=== PATIENT | male | born 1935 | race Caucasian/White ===

== ENCOUNTER → 2016-09-09 | Outpatient (CLI) | payer MEDICARE, OTHER ==
[~2016-09-09] MED LIST: ALB/IPRATROPIUM/1 E2 INH; ALBUTEROL17 GM INH; ALDACTONE PO; ALDACTONE25 MG PO; AMLODIPINE BESY10 MG PO; AMLODIPINE BESYL5 MG PO; ASPIRIN81 M2 PO; ASPIRIN81 MG PO; ATORVASTATIN CA80 MG PO; AUGMENTIN875 M1 PO; BMP (LAB); BREO ELLIPTA 11 EACH INH; CARVEDILOL25 M1 PO; CARVEDILOL25 MG PO; CATAPRES-TTS-20.2 MG PO; CLONIDINE HCL0.1 MG PO; CLONIDINE PO; COMBIVENT RESPIM4 GM INH; COREG PO; CYANOCOBALAM1000 MCG PO; ESCITALOPRAM OX10 MG PO; FAMOTIDINE20 M1 PO; FUROSEMIDE40 MG PO; GABAPENTIN300 M2 PO; GABAPENTIN300 MG PO; HUMULIN 70100 UNIT/1 SUBQ; HUMULIN N100 U/ML SUBQ; HUMULIN N100 UNIT/1; HUMULIN N100 UNIT/2 SUBQ; HUMULIN N100 UNITS/ SUBQ; HYDRALAZINE HC100 MG PO; HYDRALAZINE HCL25 MG PO; HYDRALAZINE HCL50 MG PO; IMDUR-ER60 M1 PO; IMDUR-ER60 M2 PO; IMDUR-ER60 MG PO; IPRAT-ALBUT 0.5-3 ML NEB; ISORDIL10 MG PO; ISOSORBIDE MONO60 M1 PO; KCL PO; KLOR-CON PO; LASIX PO; LASIX20 MG PO; LEVAQUIN PO; LEXAPRO20 MG PO; LIPITOR40 MG PO; LIPITOR80 MG PO; LISINOPRIL PO; LISINOPRIL20 MG PO; METFORMIN HCL500 M1 PO; NEURONTIN300 MG PO; PATIENT'S PHARMACY; PEPCID AC20 M2 PO; PREDNISONE PO; PREDNISONE10 MG PO; SERTRALINE HCL100 MG PO; SPIRIVA18 MCG INH; ZESTRIL40 MG PO
--- NOTE | ~2016-09-09 | CR63 ---
[facility] A Service of [facility] RADIOLOGY TEXT RESULTS PATIENT: TAMRA POWELL LOCATION: [facility] : 36 UNIT #: [id number] AGE: [address]: Rafi Vidales MD SEX: M ORDER DR: [id number] [facility] [address] [facility]. [place], [place] [address] [id number] O MR#: [id number] Acc #: [id number] NAME: TAMRA POWELL : 1935 SEX: M STUDY DATE/TIME: 09/09/2016 9:49 UNIT: [facility] ROOM: STUDY DESCRIPTION: CR Chest 2 View Attending Physician: Simeon Vidales M.D. Referring Physician: Simeon Vidales M.D. Ordering Physician: Simeon Vidales M.D. Primary Care Physician: Caryl Duarte M.D. MEDICAL IMAGING REPORT This report is preliminary unless electronic signature is present EXAM PA and lateral chest 09/09/2016. COMPARISON 03/02/2016. HISTORY COPD. Chronic respiratory failure, diabetes, shortness of breath and cough for 1 week. FINDINGS PA and lateral views of the chest are obtained showing postop changes of prior CABG. Heart size is enlarged. Lungs show extensive pulmonary fibrosis. There is blunting of the costophrenic angles posteriorly and there may be a tiny amount of fluid within the fissures. CONCLUSION Severe pulmonary fibrosis. Postop changes of bypass surgery with cardiomegaly. Small amount of pleural fluid which may reflect some mild superimposed heart failure. Dictated by... Santana Sepulveda M.D. THIS IS AN ELECTRONICALLY VERIFIED REPORT Santana Sepulveda M.D. at 09/10/2016 4:45 PM Iveth TD: 09/09/2016 11:59 JOB #: [id number] MEDICAL IMAGING REPORT COPY
[2016-09-09 12:23] LABS: BUN/CREATININE RATIO 20.76; CALCIUM SERUM 8.8 mg/dL (8.4-10.2); CREATININE SERUM 1.3 mg/dL (0.6-1.4); GLOM FILT RATE Estimated 56.5 mL/min (>60); POTASSIUM 3.9 mmol/L (3.5-5.1)
[2016-09-09 12:36] LABS: ARTERIAL BLD GAS O2 SATURATION 92.9 % (90.0-100.0); ARTERIAL BLOOD GAS CARBOXY HB 1.6 %sat (0.0-9.0); ARTERIAL BLOOD GAS HCO3 40.1 mmol/L; ARTERIAL BLOOD GAS MET HB 0.6 %sat (0.0-2.0); ARTERIAL BLOOD GAS pH 7.367 (7.350-7.450)
[2016-09-09 12:40] LABS: ARTERIAL BLOOD GAS ART SITE RIGHT BRACHIAL; ARTERIAL BLOOD GAS DELIVERY NASAL CANNULA; ARTERIAL BLOOD GAS PO2 74.8 mmHg (80.0-100); ARTERIAL DRAW? YES
== END | disposition home or self-care (01) ==
LOC: CRAD 09:28
PROVIDERS: Internal Medicine Pulmonary Disease
DX: J44.9 Chronic obstructive pulmonary disease, unspecified (principal); J96.11 Chronic respiratory failure with hypoxia; E11.9 Type 2 diabetes mellitus without complications; J84.10 Pulmonary fibrosis, unspecified; I51.7 Cardiomegaly; Z95.1 Presence of aortocoronary bypass graft; Z99.81 Dependence on supplemental oxygen
CPT/HCPCS: 36415; 36600; 71020; 80048; 82803

== ENCOUNTER → 2016-09-21 | Outpatient (CLI) | payer MEDICARE ==
--- NOTE | ~2016-09-21 | CT57 ---
[facility] A Service of [facility] RADIOLOGY TEXT RESULTS PATIENT: CAMILO POWELL LOCATION: [facility] : 37 UNIT #: [id number] AGE: [address]: Rafi Vidales MD SEX: M ORDER DR: [id number] [facility] [address] [facility] [place], [place] [address] [id number] O MR#: [id number] Acc #: [id number] NAME: CAMILO POWELL : 1935 SEX: M STUDY DATE/TIME: 09/21/2016 13:17 UNIT: [facility] ROOM: STUDY DESCRIPTION: CT Chest Wo Cont Attending Physician: Simeon Vidales M.D. Referring Physician: Simeon Vidales M.D. Ordering Physician: Simeon Vidales M.D. Primary Care Physician: Caryl Duarte M.D. MEDICAL IMAGING REPORT This report is preliminary unless electronic signature is present EXAM CT of the chest without contrast. DATE OF EXAM 09/21/2016 INDICATIONS 81-year-old male with shortness of breath for 2 years, COPD, respiratory failure. TECHNIQUE CT scan of the chest was performed without contrast. Coronal and sagittal reformatted images were obtained. NOTE: This CT exam was performed with one or more of the following radiation dose reduction techniques: automatic exposure control, adjustment of mA and/or kV according to patient size, and iterative reconstruction. COMPARISON Compared with 03/18/2015. FINDINGS Stable, small right pleural effusion. There is a trace left pleural effusion which is smaller than the prior study. There are stable mildly prominent mediastinal lymph nodes. These are probably reactive. Prior sternotomy and CABG. Images through the lungs demonstrate mild emphysema. There is a new 6 - 7 mm pulmonary nodule within the superior segment of the left lower lobe. Calcified granuloma in left upper lobe. Passive atelectasis in both lower lobes. Limited imaging of the upper abdomen is unremarkable. The bone windows are unremarkable. IMPRESSION 1. There is a new 6-7 mm nodule in the superior segment of the left lower lobe. Using the updated 2017 Fleischner Society criteria, STS. [facility] A Service of [facility] RADIOLOGY TEXT RESULTS PATIENT: CAMILO POWELL LOCATION: [facility] : 36 UNIT #: [id number] AGE: [address]: Rafi Vidales MD SEX: M ORDER DR: follow up chest CT in 6 months is recommended. 2. The remainder of the study is stable. Dictated by... Bipin Randolph M.D. THIS IS AN ELECTRONICALLY VERIFIED REPORT Bipin Randolph M.D. at 09/23/2016 7:32 AM GONZALES/nasrin TD: 09/21/2016 21:33 JOB #: [id number] MEDICAL IMAGING REPORT COPY
== END | disposition home or self-care (01) ==
LOC: CCAT 12:51
DX: J44.9 Chronic obstructive pulmonary disease, unspecified (principal); J96.11 Chronic respiratory failure with hypoxia; J96.12 Chronic respiratory failure with hypercapnia; R91.1 Solitary pulmonary nodule
CPT/HCPCS: 71250

== ENCOUNTER → 2016-10-20 | Outpatient (CLI) | payer MEDICARE, OTHER ==
--- NOTE | ~2016-10-20 | US84 ---
[id number] [facility] [address] [place], [place] [address] [id number] O MR#: [id number] Acc #: [id number] NAME: CAMILO POWELL : 1935 SEX: M STUDY DATE/TIME: 10/20/2016 14:33 UNIT: [facility] ROOM: STUDY DESCRIPTION: US LE Veins Complete Arias Stdy Attending Physician: Simeon Vidales M.D. Referring Physician: Simeon Vidales M.D. Ordering Physician: Simeon Vidales M.D. Primary Care Physician: Caryl Duarte M.D. MEDICAL IMAGING REPORT This report is preliminary unless electronic signature is present EXAM Bilateral lower extremity venous duplex, 10/20/2016. HISTORY Bilateral lower extremity edema for 4 days, right greater than left. FINDINGS Decker-scale images of the lower extremities were obtained as well as Doppler waveform spectral analysis and color-flow Doppler imaging. There is normal blood flow and compressibility in the bilateral common femoral veins, deep femoral veins, superficial femoral veins and popliteal veins. Normal blood flow and compressibility is seen in the calf veins bilaterally. In the right popliteal fossa, there is a 1 cm x 1 cm x 3.9 cm fluid collection characteristic of a Owusu cyst. In the left popliteal fossa, there is a 4.4 cm x 1.3 cm x 7 mm fluid collection, also characteristic of a Owusu cyst. IMPRESSION 1. No evidence of deep vein thrombosis within the lower extremities bilaterally. 2. Fluid collections in each popliteal fossa characteristic of bilateral Owusu cysts. Dictated by... Solis Green M.D. THIS IS AN ELECTRONICALLY VERIFIED REPORT Solis Green M.D. at 10/21/2016 8:09 AM ZORA/ange TD: 10/20/2016 15:53 JOB #: [id number] MEDICAL IMAGING REPORT Page 1 of 1 COPY
== END | disposition home or self-care (01) ==
LOC: CNIV 14:06
DX: M79.89 Other specified soft tissue disorders (principal); J44.9 Chronic obstructive pulmonary disease, unspecified; G47.33 Obstructive sleep apnea (adult) (pediatric)
CPT/HCPCS: 93970

== ENCOUNTER 2016-11-01 16:00 | Inpatient (IN) | payer MEDICARE, OTHER ==
--- NOTE | ~2016-11-01 | CO ---
Unit #: [id number] #: [id number] Patient: CAMILO POWELL [id number] [address] [place], [place] [address] [id number] I MR#: [id number] NAME: CAMILO POWELL ROOM: 558 Age: 81 Sex: M Admission Date: 11/01/2016 : 1935 Attending Physician: Carlos Harris M.D. Primary Care Physician: Caryl Duarte M.D. Consultation Date: 11/02/2016 CONSULTATION REPORT REASON FOR CONSULTATION Acute on chronic diastolic congestive heart failure. HISTORY OF PRESENT ILLNESS This is an 81-year-old white male, who has known history of having 4-vessel CABG back in 2002. His last cardiac cath revealed that his grafts were patent. His EF was greater than 55% with jnol-mj-kbfdzqnj mitral regurgitation, tricuspid regurgitation on last echo in 2014. He has COPD, uses continuous home oxygen; obstructive sleep apnea; hypertension; diabetic; chronic kidney disease. He is very hard of hearing. The patient was just in this facility in 02/2016 with similar symptoms. The patient was sent from the primary care physician's office after having reported a 10-pound weight gain and increasing lower extremity edema and some abdominal swelling. His oxygen saturation in the office was 85% that was even on the 3 L. Family declined EMS transport, but brought the patient to the hospital. On interview and exam with the patient and the , she does report that he had increased shortness of breath with minimal exertion along with swelling in the right leg. He denies any chest pain; pain in the neck, bilateral jaws, shoulders, arms, or elbow. Denies any palpitations. No dizziness, presyncope, or syncope. The states that she feels the patient is drinking more fluids and taking more salt than he should. Also, he has been outside doing some work on small engine such as wall murals in the garage and she thinks he has been overdoing it. In the emergency room, the patient's blood pressure was high at 199/62 with heart rate of 69, respirations 18, temperature 98.1, O2 saturation was 93% that was on 4 L. Chest x-ray did not show anything acute. BNP was 704. EKG showed normal sinus rhythm. Nonspecific findings. Nothing acute. Initial cardiac enzymes were negative. The patient also was given a dose of IV Lasix, admitted with acute on chronic diastolic heart failure and some exacerbation of COPD. Cardiology consult to assist with evaluation and management. The patient is active with Dr. Heck and just saw him in 07/2016, and was doing fine. PAST MEDICAL HISTORY 1. In 2002, he had a 4-vessel coronary artery bypass graft. Last cardiac cath was in 2014. Four grafts were found to be patent. Findings;. a. Left main 80% stenosis near the distal end. b. LAD long 80% lesion in the proximal fragment. c. Ramus intermedius 30% with hazy lesion. Unit #: [id number] #: [id number] Patient: CAMILO POWELL. Left circumflex 100% proximal. e. Mid RCA 30% stenosis with grafts to these lesions. 2. In 2014; 2D echo, LVEF of greater than 55%. Oukp-bg-mvubocwk mitral regurgitation, pdis-sx-upanoiph tricuspid regurgitation. 3. Chronic diastolic congestive heart failure. 4. COPD, continues oxygen at 3 L. 5. Obstructive sleep apnea. 6. Hypertension. 7. Diabetes mellitus type 2. 8. Hyperlipidemia. 9. Chronic kidney disease. 10. Gastroesophageal reflux disease. 11. B12 deficiency. 12. Hard of hearing. 13. Peripheral vascular disease. 14. On 10/20/2016, bilateral lower extremity venous Doppler studies were negative for DVT. 15. Reformed smoker. PAST SURGICAL HISTORY 1. Four-vessel coronary artery bypass graft in 2002. 2. Vein stripping. HOME MEDICATIONS Breo Ellipta 100/25 one inhalation daily; Humulin N 35 units subcu in the morning; aspirin 81 mg p.o. daily; Lipitor 40 mg p.o. bedtime; lisinopril 20 mg p.o. daily; Aldactone 12.5 mg p.o. daily; albuterol/ ipratropium one inhalation every 12 hours p.r.n.; Lasix 40 mg p.o. b.i.d.; Humulin N 10 units subcu in the evening; amlodipine 5 mg p.o. daily; carvedilol 25 mg p.o. b.i.d.; Combivent one inhalation q.i.d. p.r.n.; escitalopram oxalate 10 mg p.o. in the morning; Humulin 70/30, 30 units subcu daily; Neurontin 600 mg p.o. b.i.d.; Imdur ER 60 mg p.o. daily. ALLERGIES No known drug allergies. SOCIAL HISTORY The patient lives at home with his . He wears continuous home oxygen at 3 L. 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 No alcohol or illicit drug abuse. He quit smoking 20 years ago. FAMILY HISTORY Significant for coronary artery disease. REVIEW OF SYSTEMS See details in HPI. PHYSICAL EXAMINATION GENERAL: Mr. Powell is an 81-year-old white male, in no acute respiratory distress. He is awake, alert, very hard of hearing. Answers questions appropriately to his . VITAL SIGNS: Blood pressure is 169/80, heart rate 66, respirations 16, temperature 98.1, O2 saturations 99% on 3 L. NECK: Trachea midline. No thyromegaly or lymphadenopathy. Normal carotid upstrokes. No jugular venous distention. HEART: S1, S2. Regular rate and rhythm. No clicks, murmurs, or rubs. Unit #: [id number] #: [id number] Patient: CAMILO POWELL LUNGS: A very diminished with a few faint scattered wheezes. ABDOMEN: Obese, soft, nontender. EXTREMITIES: Pedal pulses are palpable. Trace pedal edema. DIAGNOSTIC STUDIES LABORATORY RESULTS: Glucose is 167, BUN 22, creatinine 1.1, eGFR is 63.1. Sodium 141, potassium 3.6, chloride 98, CO2 of 37, calcium is 8.8, magnesium is 1.9, total protein 6.5, albumin 3.3, bilirubin total 1.2, AST is 19, ALT is 24, alkaline phosphatase is 64, BNP 704. Initial cardiac enzymes; CK-MB is 1.7, and troponin less than 0.05. CK-MB is less than 1.0, troponin less than 0.05. INR is 1.1. WBCs 6.1, hemoglobin 11.9, hematocrit 36.9, platelets are 195. Urinalysis reveals 3+ leukocyte esterase, 100 glucose, and 1.0 urobilinogen. IMAGING STUDIES: Chest x-ray shows cardiomegaly, chronic passive congestion with fibrotic changes, and chronic right-sided pleural effusion. This was repeated compared to study done a month ago. No evidence of DVT. He does have a Owusu cyst in the left popliteal fossa. CARDIOVASCULAR STUDIES: EKG shows normal sinus rhythm with ventricular rate of 65 beats per minute, nonspecific ST-T wave abnormalities. Slightly prolonged QT. IMPRESSION 1. Acute on chronic diastolic congestive heart failure. 2. Acute on chronic exacerbation of chronic obstructive pulmonary disease. 3. Poorly controlled hypertension. 4. History of coronary artery disease. Previous coronary artery bypass grafting in 2002. Grafts were found patent on catheterization in 2014. 5. Left ventricular ejection fraction of greater than 55% on last echo 2014 with qtoo-ta-bbswpzht mitral regurgitation, tricuspid regurgitation. 6. Hypertension. 7. Hyperlipidemia. 8. Diabetes mellitus type 2. 9. Chronic kidney disease. 10. Gastroesophageal reflux disease. 11. B12 deficiency. 12. Peripheral vascular disease. 13. Hard of hearing. PLAN 1. Continue to monitor cardiac enzymes and EKG. We will adjust the patient's blood pressure medication. We will change Lasix to 60 mg p.o. b.i.d., also that will be changed from IV Lasix here. 2. We will add hydralazine 50 mg p.o. b.i.d. and Isordil 20 mg p.o. b.i.d. for better blood pressure management. 3. Strict intake and output and daily weight. 1800 mL 24-hour fluid restriction. 4. Obtain a 2D echo to evaluate left ventricular function and valves, couple of years since he has had echo. 5. Also continue the patient on his home medications of carvedilol 25 mg p.o. b.i.d., Norvasc 5 mg p.o. daily, lisinopril 20 mg p.o. daily, and a statin 40 mg p.o. daily, and also on aspirin and spironolactone 12.5 mg daily in addition to adding hydralazine and Isordil. 6. After Dr. Stanford reviewed the patient's medication and made recommendations along with examination and discussion with the patient, it is felt like it would be permissible to discharge the patient later today. 7. Strict congestive heart failure education provided to the patient, Unit #: [id number] #: [id number] Patient: CAMILO POWELL reiterated the importance of fluid restriction. 8. On exam, there is no signs or symptoms of unstable angina. Cardiac enzymes are negative. EKG does not show anything acute. 9. The patient and the states that he has an appointment with Dr. Heck towards the end of 12/2016. I encouraged to keep that appointment when discharged. Thank you very much for allowing us to assist in the care. Dictated by... Brittni Villegas/donny TD: 11/03/2016 05:48 JOB #: [id number] CONSULTATION REPORT Page 1 of 1 X Suellen García APRN X CONSULTATION REPORT
--- NOTE | ~2016-11-01 | EKG ---
PATIENT: CAMILO POWELL UNIT #: [id number] Ventricular Rate: 65 BPM Atrial Rate: 65 BPM P-R Interval: 150 ms QRS Duration: 88 ms Q-T Interval: 448 ms QTC Calculation(Bezet): 465 ms P Hollister: 63 degrees Calculated R Hollister: 21 degrees Calculated T Hollister: 169 degrees Diagnosis Line: Normal sinus rhythm Diagnosis Line: Nonspecific T wave abnormality Diagnosis Line: Prolonged QT Diagnosis Line: Abnormal ECG Diagnosis Line: When compared with ECG of 02-MAR-2016 14:01, Diagnosis Line: Premature ventricular complexes are no longer Diagnosis Line: Present Diagnosis Line: Confirmed by CARIN CAMACHO MD ([id number]) on 11/01/2016 Diagnosis Line: 10:34:33 PM INTERPRETING MD: JANICE MO
--- NOTE | ~2016-11-01 | CR72 ---
[facility] A Service of [facility] RADIOLOGY TEXT RESULTS PATIENT: CAMILO POWELL LOCATION: [place] [address] : 37 UNIT #: [id number] AGE: [address]: Carlos Harris MD SEX: M ORDER DR: [id number] [facility] [address] [place], [place] [address] [id number] E MR#: [id number] Acc #: [id number] NAME: CAMILO POWELL : 1935 SEX: M STUDY DATE/TIME: 11/01/2016 16:18 UNIT: [facility] ROOM: STUDY DESCRIPTION: CR Chest Single View Portable Attending Physician: Toyin Garland M.D. Ordering Physician: Toyin Garland M.D. Primary Care Physician: Caryl Duarte M.D. MEDICAL IMAGING REPORT This report is preliminary unless electronic signature is present EXAM Portable chest 11/01 COMPARISON 09/09/2016 HISTORY SUPPLIED Shortness of breath, possible heart failure. FINDINGS AP portable view is obtained. Cardiac size is enlarged. Lungs show evidence of chronic pulmonary parenchymal scarring and least mild passive congestion. There is chronic appearing pleural thickening. Postop changes of bypass surgery are present. CONCLUSION Cardiomegaly. Chronic passive congestion with fibrotic changes and chronic right-sided pleural thickening. No acute process suspected. Dictated by... Santana Sepulveda M.D. THIS IS AN ELECTRONICALLY VERIFIED REPORT Santana Sepulveda M.D. at 11/03/2016 7:19 AM ANASTASIA/sonny TD: 11/01/2016 20:48 JOB #: [id number] MEDICAL IMAGING REPORT Page 1 of 1 COPY
--- NOTE | ~2016-11-01 | HP ---
Unit #: [id number] #: [id number] Patient: CAMILO POWELL [id number] [place] [address] [facility]. [place], [place] [address] [id number] E MR#: [id number] NAME: CAMILO POWELL ROOM: Age: 81 Sex: M Admission Date: 11/01/2016 : 1935 Attending Physician: Toyin Garland M.D. Primary Care Physician: Caryl Duarte M.D. HISTORY AND PHYSICAL CHIEF COMPLAINT Sent from PCP for possible heart failure. HISTORY OF PRESENT ILLNESS The patient is a 25-year-old male with a past medical history of CHF, chronic respiratory failure, COPD, chronic kidney disease, hypertension, hyperlipidemia, coronary artery disease, GERD, diabetes, B12 deficiency, and obstructive sleep apnea, who presented to the emergency department for evaluation of the above. The patient is very hard of hearing and so much of the history was taken from the patient's who is at the bedside but also from the patient. The patient has not been feeling well for the past three to four days. He has had increasing shortness of breath and occasional cough. He has had dyspnea on exertion when walking across the room. He has not had chest pain or fever. He has two-pillow orthopnea that is not a new problem. He denies paroxysmal nocturnal dyspnea. He has had right lower extremity swelling that is not a new problem. He had bilateral lower extremity venous Doppler on October 20, 2016, that showed no DVT. He denies any vomiting or diarrhea and no urinary symptoms. He has been taking his medications as prescribed. The patient's states that he may have been sneaking some salty food. She is unsure if he has had any change in his weight. In the emergency department, initial pulse and blood pressure were 69 and 199/62, respectively, and oxygen saturation was 93% on four liters. Chest x-ray showed no acute findings. Laboratory is notable for BNP of 704. He is being admitted to [facility] for evaluation and further treatment. PAST MEDICAL HISTORY 1. Admission to [facility] March 02, 2016, for acute on chronic respiratory failure and CHF exacerbation. 2. Congestive heart failure followed by Dr. Heck. The patient had an echocardiogram December 21, 2014, that showed an ejection fraction greater than 55% with mild to moderate mitral regurgitation and mild to moderate tricuspid regurgitation. 3. History of PVCs. 4. Hypertension. 5. Hyperlipidemia. 6. Coronary artery disease, status post coronary artery bypass grafting. 7. Chronic obstructive pulmonary disease followed by Dr. Vidales. 8. Chronic respiratory failure, on three liters of oxygen per nasal cannula. Unit #: [id number] #: [id number] Patient: CAMILO POWELL 9. Obstructive sleep apnea, on CPAP. 10. Diabetes. 11. Gastroesophageal reflux disease. 12. B12 deficiency. PAST SURGICAL HISTORY 1. Coronary artery bypass grafting. 2. Cardiac catheterization. SOCIAL HISTORY The patient lives with his . He quit smoking. He typically walks without assistance. His code status is a Full Code. FAMILY HISTORY Notable for coronary artery disease. ALLERGIES No known allergies. HOME MEDICATIONS 1. Breo Ellipta inhaled daily. 2. Humulin N 35 units in the morning and 10 units at night. 3. Aspirin 81 mg daily. 4. Lipitor 40 mg daily. 5. Lisinopril 20 mg daily. 6. Aldactone 12.5 mg daily. 7. Ipratropium and albuterol q.12 hours. 8. Lasix 40 mg twice daily. 9. Amlodipine 5 mg daily. 10. Coreg 25 mg twice daily. 11. Combivent 4 times daily p.r.n. 12. Escitalopram 10 mg daily. 13. Humulin 70/30 at 30 units daily. 14. Neurontin 600 mg twice daily. 15. Imdur 60 mg daily. REVIEW OF SYSTEMS A complete review of systems is negative except as indicated in the History of Present Illness. The patient's blood sugars are typically in the 100s. PHYSICAL EXAMINATION VITAL SIGNS: Temperature is 98.1, pulse 69, respirations 18, blood pressure 199/62, and oxygen saturation 93% on 4 liters. GENERAL: Patient is a male who is awake, alert, and in no acute distress. HEENT: Head is atraumatic. Mucous membranes are moist. NECK: Supple. Trachea is midline. CARDIOVASCULAR: Regular rate and rhythm. LUNGS: Decreased breath sounds bilaterally. Breathing is not labored. ABDOMEN: Soft and nontender with bowel sounds present in all four quadrants. EXTREMITIES: There is 1+ pitting edema of the right lower extremity and trace edema of the left. NEUROLOGIC: Patient is awake and alert. He is very hard of hearing. He follows commands. PSYCHIATRIC: Mood and affect are normal. Patient is cooperative. SKIN: Skin of examined areas is warm and dry. Unit #: [id number] #: [id number] Patient: CAMILO POWELL DIAGNOSTIC STUDIES LABORATORY: Complete blood count notable for hemoglobin and hematocrit of 12.4 and 38.5, respectively. INR is 1.1. Troponin is less than 0.05. Comprehensive metabolic panel notable for a potassium of 3.4, chloride 98, bicarb 36, glucose 217, and BUN and creatinine 23 and 1.2, respectively. BNP is 704. IMAGING: Chest x-ray shows no acute abnormality. CARDIOLOGY: EKG shows normal sinus rhythm with a rate of 65 beats per minute. ASSESSMENT The patient is an 81-year-old male with: 1. Congestive heart failure exacerbation. 2. Chronic respiratory failure on three liters of oxygen per nasal cannula. 3. Chronic obstructive pulmonary disease. 4. Chronic kidney disease, appears to be stage 3, with a baseline creatinine around 1.3. 5. Hypokalemia. 6. Hypertension. 7. Hyperlipidemia. 8. Coronary artery disease, status post coronary artery bypass grafting. 9. Gastroesophageal reflux disease. 10. Diabetes. 11. B12 deficiency. 12. Obstructive sleep apnea, on CPAP. PLAN 1. Admit to intermediate level. 2. Two gram sodium, 1800 mL fluid-restricted, heart-healthy, consistent carbohydrate diet. 3. Strict I/Os. 4. Daily weights. 5. Lasix 40 mg IV q.12 hours with first dose now. 6. Serial cardiac enzymes. 7. A 2D echo if not done within the past year. 8. Consult Dr. Ordaz regarding CHF exacerbation. 9. Supplemental oxygen. 10. Replace potassium. 11. Check magnesium. 12. Hemoglobin A1c. 13. Low-dose sliding scale insulin with Accu-Cheks. 14. CPAP at home settings. 15. Urinalysis with culture and sensitivity. 16. Bilateral lower extremity venous Doppler. 17. Repeat labs in the morning. 18. Regarding code status, the patient is a Full Code. 19. Additional workup and consultants based on above. 1. Dictated by Sonja Moe M.D. AW/phuong Unit #: [id number] #: [id number] Patient: CAMILO POWELL TD: 11/01/2016 20:53 JOB #: [id number] HISTORY AND PHYSICAL Page 1 of 1 X Sonja Moe MD X HISTORY AND PHYSICAL
--- NOTE | ~2016-11-01 | US84 ---
[id number] [facility]. [facility] [address] [place], [place] [address] [id number] I MR#: [id number] Acc #: [id number] NAME: CAMILO POWELL : 1935 SEX: M STUDY DATE/TIME: 11/02/2016 9:46 UNIT: C5B ROOM: 558 STUDY DESCRIPTION: US LE Veins Complete Arias Stdy Attending Physician: Carlos Harris M.D. Ordering Physician: Toyin Garland M.D. Primary Care Physician: Caryl Duarte M.D. MEDICAL IMAGING REPORT This report is preliminary unless electronic signature is present EXAM Bilateral lower extremity venous duplex, 11/02/2016. HISTORY Bilateral lower extremity edema for 1 month. Evaluate for deep vein thrombosis. FINDINGS Decker-scale images of the lower extremities were obtained as well as Doppler waveform spectral analysis and color flow Doppler imaging. There is normal blood flow and compressibility in the bilateral common femoral veins, deep femoral veins, superficial femoral veins and popliteal veins. Normal blood flow and compressibility is seen in the calf veins bilaterally. There is a 2.7 cm x 4.9 cm x 9 mm complicated fluid collection in the left popliteal fossa characteristic of a Owusu cyst. IMPRESSION 1. No evidence of deep vein thrombosis within the lower extremities bilaterally. 2. 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 Dictated by... Solis Green M.D. THIS IS AN ELECTRONICALLY VERIFIED REPORT Solis Green M.D. at 11/03/2016 8:04 AM ZORA/ange TD: 11/02/2016 11:08 JOB #: [id number] MEDICAL IMAGING REPORT Page 1 of 1 COPY
--- NOTE | ~2016-11-01 | DS ---
Unit #: [id number] #: [id number] Patient: CAMILO OPWELL [id number] [address] [place], [place] [address] [id number] I MR#: [id number] NAME: CAMILO POWELL ROOM: 55 Age: 81 Sex: M Admission Date: 11/01/2016 : 1935 Discharge Date: 11/02/2016 Attending Physician: Carlos Harris M.D. Primary Care Physician: Caryl Duarte M.D. DISCHARGE SUMMARY ADMITTING DIAGNOSIS Acute on chronic systolic congestive heart failure. ADMITTING DISCHARGE DIAGNOSES 1. Acute on chronic systolic congestive heart failure. 2. Chronic respiratory failure. 3. Chronic obstructive pulmonary disease. 4. Chronic kidney disease. 5. Hypertension. 6. Hyperlipidemia. 7. Coronary artery disease. 8. Gastroesophageal reflux disease. 9. Diabetes mellitus type 2. 10. Vitamin B12 deficiency. 11. Obstructive sleep apnea. CONSULTANTS Dr. Kisha Stanford. HISTORY OF PRESENT ILLNESS The patient is an 81-year-old man with multiple medical problems. Was admitted yesterday because of shortness of breath and worsening edema in the lower extremities. In the hospital course he was started on diuretics, and his edema has improved. He was seen by cardiology. They titrated his medications. He started on hydralazine 50 mg p.o. b.i.d., Isordil 20 mg p.o. b.i.d., and his Lasix dose was also increased from 40 mg to 60 mg p.o. b.i.d. An echocardiogram was done. The report is pending at this point. Cardiology said it is okay to discharge the patient. I spoke with the patient and his . The patient says he is feeling better, and he wants to go home. He says that he has a cat at his home, and he needs to take care of the cat, and he is eager to go home. I am requesting him to follow up with cardiology as an outpatient. He follows with Dr. Heck. Requested him to follow with Dr. Heck as an outpatient. He is doing clinically better. PHYSICAL EXAMINATION ON THE DAY OF DISCHARGE VITAL SIGNS: Temperature 98.1, pulse rate 66, respirations 16, blood pressure 169/82. GENERAL: The patient is alert and oriented x3, lying in bed, no acute distress. HEENT: Normocephalic, atraumatic. No icterus. PERRLA. Extraocular muscles intact. NECK: Supple. No JVD. HEART: S1, S2. Regular rate and rhythm. Unit #: [id number] #: [id number] Patient: CAMILO POWELL CHEST: Bibasilar crackles. ABDOMEN: Soft, nontender. EXTREMITIES: No edema. Normal pulses. DISCHARGE MEDICATIONS 1. Albuterol 3 mL Mini-Nebulization q.4 p.r.n. shortness of breath. 2. Combivent Respimat inhaler 1 inhalation q.i.d. p.r.n. shortness of breath. 3. Neurontin 600 mg b.i.d. 4. Lexapro 10 mg in the morning. 5. Coreg 25 mg p.o. b.i.d. 6. Norvasc 5 mg daily. 7. Breo Ellipta 100/25 mcg inhalation 1 puff daily. 8. Lasix 60 mg p.o. b.i.d. 9. Lipitor 40 mg at bedtime. 10. Lisinopril 20 mg daily. 11. Humulin 70/30 - 30 units subcu daily. 12. Humulin U100 - 35 units subcu in the morning and 10 units in the evening. 13. Aspirin 81 mg daily. 14. Spironolactone 12.5 mg daily. 15. Imdur ER 60 mg daily. 16. Isordil 20 mg b.i.d. 17. Hydralazine 50 mg b.i.d. FOLLOWUP He is instructed to follow with his primary care in 1-2 weeks. NOTE: Total time spent in his care - 35 minutes. Dictated by... Arin France/edin TD: 11/02/2016 12:23 JOB #: [id number] DISCHARGE SUMMARY Page 1 of 1 X X DISCHARGE SUMMARY
[~2016-11-01 16:00] MED LIST changes: -ALBUTEROL17 GM INH; -AMLODIPINE BESYL5 MG PO; -BMP (LAB); -CARVEDILOL25 M1 PO; -COMBIVENT RESPIM4 GM INH; -ESCITALOPRAM OX10 MG PO; -GABAPENTIN300 MG PO; -HUMULIN 70100 UNIT/1 SUBQ; -HUMULIN N100 UNIT/1; -HUMULIN N100 UNIT/2 SUBQ; -IPRAT-ALBUT 0.5-3 ML NEB; -ISORDIL10 MG PO; -ISOSORBIDE MONO60 M1 PO; -LEXAPRO20 MG PO; -NEURONTIN300 MG PO; -PATIENT'S PHARMACY
[2016-11-01 16:12] LABS: BASOPHIL% 0.4 % (0-2.5); EOSINOPHIL# 0.2 X10e3 (0-0.7); EOSINOPHIL% 2.4 % (0.0-7.0); HEMATOCRIT 38.5 % (38.0-50.0); HEMOGLOBIN 12.4 gm/dL (13.0-16.0); LYMPHOCYTE# 1.2 X10e3 (1.0-3.5); LYMPHOCYTE% 18.2 % (17.0-45.0); MEAN CELL VOLUME 87.8 FL (83-96); MEAN CORPUSCULAR HEMOGLOBIN 28.2 PG (28-34); MEAN CORPUSCULAR HGB CONC 32.1 g/dL (30-36); MEAN PLATELET VOLUME 7.4 FL (6.5-11.5); MONOCYTE# 0.4 X10e3 (0-1.0); MONOCYTE% 6.6 % (3.0-12.0); NEUTROPHIL# 4.8 X10e3 (1.5-7.1); NEUTROPHIL% 72.4 % (40-75); PLATELET COUNT 206 X10e3 (140-420); RED BLOOD COUNT 4.39 X10e (3.90-5.60); WHITE BLOOD COUNT 6.6 X10e3 (4.0-10.5)
[2016-11-01 16:13] LABS: DIFF IND NO
[2016-11-01 16:27] LABS: INR 1.1; PROTHROMBIN TIME (PATIENT) 11.6 SECONDS (9.6-11.5)
[2016-11-01 16:38] LABS: ALBUMIN SERUM 3.6 g/dL (3.5-5.0); BILIRUBIN, DIRECT 0.2 mg/dL (0.0-0.2); BILIRUBIN,INDIRECT 1.2 mg/dL (0.0-0.9); BILIRUBIN,TOTAL 1.4 mg/dL (0.2-2.0); BUN/CREATININE RATIO 19.16; CALCIUM SERUM 9.2 mg/dL (8.4-10.2); CREATININE SERUM 1.2 mg/dL (0.6-1.4); GLOM FILT RATE Estimated 56.8 mL/min (>60); POTASSIUM 3.4 mmol/L (3.5-5.1); PROTEIN TOTAL SERUM 6.9 g/dL (6.0-8.3)
[2016-11-01 16:41] LABS: POC - CKMB 1.7 ng/mL (0.0-7.9); POC - TROPONIN <0.05 ng/mL (<=0.05)
[2016-11-01 18:03] LABS: POC - CKMB <1.0 ng/mL (0.0-7.9); POC - TROPONIN <0.05 ng/mL (<=0.05)
[2016-11-01] MEDS ORDERED: HUMULIN N100 UNIT/2 SUBQ (18:55)
[2016-11-01] MEDS ORDERED: AMLODIPINE BESYL5 MG PO (18:57)
[2016-11-01] MEDS ORDERED: CARVEDILOL25 MG PO (18:57)
[2016-11-01] MEDS ORDERED: COMBIVENT RESPIM4 GM INH (19:00)
[2016-11-01] MEDS ORDERED: ESCITALOPRAM OX10 MG PO (19:01)
[2016-11-01] MEDS ORDERED: HUMULIN 70100 UNIT/1 SUBQ (19:02)
[2016-11-01] MEDS ORDERED: NEURONTIN300 MG PO (19:03)
[2016-11-01] MEDS ORDERED: IMDUR-ER60 M1 PO (19:04)
[2016-11-01] MEDS ORDERED: LEXAPRO20 MG PO (19:05)
[2016-11-01 20:58] LABS: URINE SOURCE CLEAN CATCH
[2016-11-01 21:05] LABS: URINE APPEARANCE CLEAR; URINE BILIRUBIN NEG (NEG); URINE BLOOD NEG (NEG); URINE COLOR YELLOW; URINE GLUCOSE 100 MG/DL (NEG); URINE KETONE NEG (NEG); URINE LEUKOCYTE ESTERASE NEG (NEG); URINE NITRATE NEG (NEG); URINE PROTEIN 3+ (NEG); URINE SPECIFIC GRAVITY 1.015 (1.003-1.035)
[2016-11-01 21:08] LABS: URINE BACTERIA AUWI NEG (NEGATIVE); URINE SQUAMOUS EPITHELIAL CELL NONE SEEN /[HPF]; UWBCS1 AUWI 0-2 (0-5)
[2016-11-01 23:47] LABS: CK TOTAL 49 IU/L (36-174)
[2016-11-02 06:13] LABS: BASOPHIL% 0.6 % (0-2.5); EOSINOPHIL# 0.2 X10e3 (0-0.7); EOSINOPHIL% 2.9 % (0.0-7.0); HEMATOCRIT 36.9 % (38.0-50.0); HEMOGLOBIN 11.9 gm/dL (13.0-16.0); LYMPHOCYTE% 16.2 % (17.0-45.0); MEAN CELL VOLUME 87.8 FL (83-96); MEAN CORPUSCULAR HEMOGLOBIN 28.2 PG (28-34); MEAN CORPUSCULAR HGB CONC 32.2 g/dL (30-36); MEAN PLATELET VOLUME 7.2 FL (6.5-11.5); MONOCYTE# 0.4 X10e3 (0-1.0); MONOCYTE% 6.6 % (3.0-12.0); NEUTROPHIL# 4.5 X10e3 (1.5-7.1); NEUTROPHIL% 73.7 % (40-75); PLATELET COUNT 195 X10e3 (140-420); RED CELL DISTRIBUTION WIDTH 15.9 % (11.0-15.5); WHITE BLOOD COUNT 6.1 X10e3 (4.0-10.5)
[2016-11-02 06:22] LABS: DIFF IND NO
[2016-11-02 06:47] LABS: CK TOTAL 40 IU/L (36-174)
[2016-11-02 06:57] LABS: ALBUMIN SERUM 3.3 g/dL (3.5-5.0); BILIRUBIN,TOTAL 1.2 mg/dL (0.2-2.0); CALCIUM SERUM 8.8 mg/dL (8.4-10.2); CREATININE SERUM 1.1 mg/dL (0.6-1.4); GLOM FILT RATE Estimated 63.1 mL/min (>60); MAGNESIUM 1.9 mg/dL (1.6-3.0); POTASSIUM 3.6 mmol/L (3.5-5.1); PROTEIN TOTAL SERUM 6.5 g/dL (6.0-8.3)
[2016-11-02] MEDS ORDERED: HYDRALAZINE HCL50 MG PO (11:46)
[2016-11-02] MEDS ORDERED: ISORDIL10 MG PO (11:47)
== END 2016-11-02 13:54 | disposition home or self-care (01) | DRG 291 ==
LOC: CED 16:00 → CEDOF 19:30 → C5B 21:38
PROVIDERS: Emergency Medicine
PROC: B246ZZZ Ultrasonography of Right and Left Heart (ICD-10-PCS; principal; 2016-11-02)
DX: I13.0 Hypertensive heart and chronic kidney disease with heart failure and stage 1 through stage 4 chronic kidney disease, or unspecified chronic kidney disease (principal); I50.23 Acute on chronic systolic (congestive) heart failure; J96.10 Chronic respiratory failure, unspecified whether with hypoxia or hypercapnia; E11.22 Type 2 diabetes mellitus with diabetic chronic kidney disease; Z99.81 Dependence on supplemental oxygen; N18.9 Chronic kidney disease, unspecified; J44.9 Chronic obstructive pulmonary disease, unspecified; E87.6 Hypokalemia; E78.5 Hyperlipidemia, unspecified; I25.10 Atherosclerotic heart disease of native coronary artery without angina pectoris; K21.9 Gastro-esophageal reflux disease without esophagitis; E53.8 Deficiency of other specified B group vitamins; G47.33 Obstructive sleep apnea (adult) (pediatric); Z95.1 Presence of aortocoronary bypass graft; Z79.82 Long term (current) use of aspirin; Z79.4 Long term (current) use of insulin; Z79.51 Long term (current) use of inhaled steroids; Z79.899 Other long term (current) drug therapy; Z87.891 Personal history of nicotine dependence
CPT/HCPCS: 36415; 71010; 80048; 80053; 80076; 81003; 82550; 82553; 82947; 83036; 83735; 83880; 84484; 85025; 85610; 87086; 93005; 93306; 93970; 94760; 99285; J1815; J1940

== ENCOUNTER 2017-01-14 10:11 | Inpatient (IN) | payer MEDICARE, OTHER ==
--- NOTE | ~2017-01-14 | CO ---
Unit #: [id number] #: [id number] Patient: CAMILO POWELL [id number] [facility]. [place] [address] [facility]. [place], [place] [address] [id number] I MR#: [id number] NAME: CAMILO POWELL ROOM: 325 Age: 82 Sex: M Admission Date: 01/14/2017 : 1935 Attending Physician: Laurence Hoff M.D. Primary Care Physician: Caryl Duarte M.D. CONSULTATION REPORT REASON FOR CONSULTATION Congestive heart failure. HISTORY OF PRESENT ILLNESS This is an 81-year-old white male, who is known to Dr. Heck, who has a history of coronary artery disease where he underwent coronary artery bypass graft x4 in 2002. His last cardiac catheterization was in 2014, where all grafts were patent. He is known to have hypertension, hyperlipidemia, and chronic diastolic heart failure. The patient is admitted with a complaint of shortness of breath, increase in his abdominal girth, and right lower extremity edema. He has significant hearing loss and therefore information has been obtained by the , who is at bedside. According to the patient's , she noted him to have a shortness of breath that has progressively worsened over the past week and a half. She has noted a gradual increase in his abdominal girth and right lower extremity edema. There was no significant change in his weight. She is very meticulous about daily weights and fluid restriction and his salt intake. She has noted him to be short of breath when walking down the driveway. He has had more difficulty lying down flat because of dyspnea. There was no report of cough. The patient has been sneaking out with his friends where he has been eating and drinking more than usual. He has also been out of his spironolactone for the past one week. She noticed that he had decrease in his urine output. He went to [facility] because of shortness of breath that occurred this morning where the patient called out to her and he could not breathe. He has been on home oxygen, but at the time arrival to [facility], his oxygen saturation level was 75%. He was placed on the oxygen there, which immediately improved his oxygenation. He was treated with IV Lasix. Abnormal laboratory values included a potassium level of 5.8 and a creatinine of 1.45. BNP 279. His troponin was within normal limits with no acute EKG changes. The patient denies chest pain. PAST MEDICAL HISTORY 1. A 2D echocardiogram on 11/02/2016 shows an ejection fraction equal to 50% to 55% with yylj-qy-nbebwfme mitral regurgitation, xyrt-qg-xpzsalul tricuspid regurgitation, moderate concentric left ventricular hypertrophy, and right ventricular systolic pressure of 43 mmHg. 2. Coronary artery bypass graft x4 in 2002 at [facility] with LUGO to the LAD, saphenous vein graft to the diagonal, and obtuse marginal branch of the left PDA. 3. Cardiac catheterization in 2001 and 2014 at [facility] per Dr. Heck shows left main 80% distal. LAD had a long segment stenosis of Unit #: [id number] #: [id number] Patient: CAMILO POWELL R 80% proximal. Ramus intermedius branch 30% with hazy lesion. Left circumflex artery 100% proximal. Mid right coronary artery 30%. A 4/4 grafts were patent. Pulmonary artery pressure is 52/21 with mean of 33. Pulmonary capillary wedge pressure 25. 4. Chronic diastolic heart failure. 5. Hypertension. 6. Hyperlipidemia. 7. Diabetes mellitus type 2. 8. Peripheral vascular disease. 9. Chronic kidney disease. 10. GERD. 11. COPD, on home oxygen. 12. Obstructive sleep apnea, wears CPAP. 13. Former smoker. PAST SURGICAL HISTORY 1. Coronary artery bypass graft. 2. Vein stripping. SOCIAL HISTORY The patient is . He quit smoking more than 20 years ago. He has no history of alcohol or illicit drug use. FAMILY HISTORY Positive for coronary artery disease. ALLERGIES No known drug allergies. HOME MEDICATIONS 1. Breo Ellipta 100/25 mcg one inhalation daily. 2. Humulin N 35 units q.a.m. 3. Aspirin 81 mg daily. 4. Lisinopril 20 mg daily. 5. Lipitor 40 mg nightly. 6. Combivent mini nebs q.12 h. p.r.n. 7. Humulin N 10 units subcu every evening. 8. Amlodipine 5 mg b.i.d. 9. Carvedilol 25 mg b.i.d. 10. Combivent MDI q.i.d. p.r.n. 11. Humulin 70/30 of 30 units subcu daily. 12. Neurontin 600 mg b.i.d. 13. Imdur 60 mg daily. 14. Hydralazine 50 mg daily. 15. Furosemide 20 mg b.i.d. 16. Lexapro 20 mg daily. REVIEW OF SYSTEMS Unable to adequately assess because of the patient's significant hearing loss. He denies chest pain, but does complain of shortness of breath. PHYSICAL EXAMINATION VITAL SIGNS: Blood pressure 172/61, heart rate 71, and temperature 97.6. GENERAL: This is a well-developed 81-year-old white male, who is in no acute respiratory distress. NEUROLOGIC: He is awake, alert, and oriented. There are no focal weaknesses. NECK: Trachea is midline. No thyromegaly or lymphadenopathy. No jugular Unit #: [id number] #: [id number] Patient: CAMILO POWELL R venous distention. HEART: S1 and S2. Heart sounds are normal. No murmurs, rubs, or clicks. Regular rate and rhythm. LUNGS: Diminished breath sounds with expiratory wheezes in the bilateral lung bases. ABDOMEN: Soft and obese with bowel sounds are present. EXTREMITIES: With trace lower extremity edema. DIAGNOSIS STUDIES LABORATORY STUDIES: Troponin 0.02. BNP 279. Sodium 141, potassium 5.8, BUN 35, creatinine 1.57, and glucose 233. White count 7.3, hemoglobin 12.1, hematocrit 37.0, and platelet count 162. CARDIOVASCULAR STUDIES: EKG; normal sinus rhythm with a rate of 69 beats per minute with no acute ischemic changes. IMPRESSION 1. Acute on chronic hypoxic respiratory failure. 2. Acute on chronic diastolic heart failure with preserved ejection fraction of 50% to 55%. 3. Acute on chronic COPD exacerbation. 4. Coronary artery disease with history of coronary artery bypass graft x3 in 2002 with grafts patent in 2015. 5. Hypertension. 6. Hyperlipidemia. 7. Diabetes mellitus type 2. 8. Chronic kidney disease. 9. Obstructive sleep apnea. PLAN 1. Cardiology was consulted for congestive heart failure. We will continue to diurese the patient with IV diuretics. 2. Fluid and salt restriction will be ensued. 3. CHF education will be given to the patient as well as the . 4. Continue to monitor serial cardiac enzymes and troponin. 5. Follow up with Dr. Heck at discharge. Thank you for allowing us to assist in this patient's care. Dictated by... Brittni Keen/donny TD: 01/17/2017 03:14 JOB #: [id number] CC: Marina Heck M.D. Unit #: [id number] #: [id number] Patient: CAMILO POWELL CONSULTATION REPORT Page 1 of 1 X Akil Lovell APRN CONSULTATION REPORT
--- NOTE | ~2017-01-14 | DS ---
Unit #: [id number] #: [id number] Patient: CAMILO POWELL [id number] [address] [address] [id number] I MR#: [id number] NAME: CAMILO POWELL ROOM: 325 Age: 82 Sex: M Admission Date: 01/14/2017 : 1935 Discharge Date: 01/16/2017 Attending Physician: Laurence Hoff M.D. Primary Care Physician: Caryl Duarte M.D. DISCHARGE SUMMARY PRIMARY CARE PROVIDER Dr. Caryl Duarte. PRINCIPAL DIAGNOSES 1. Acute exacerbation of chronic diastolic congestive heart failure with an ejection fraction of 50% to 55%. 2. Acute on chronic hypoxic respiratory failure, now maintained back on his 3 L of oxygen per nasal cannula continuously. 3. Mild acute exacerbation of chronic obstructive pulmonary disease, now resolved. 4. Coronary artery disease. 5. Chronic kidney disease, stage 3; baseline creatinine approximately 1.3; discharge creatinine is 1.5. 6. Diabetes mellitus, type 2, insulin requiring. 7. Hyperkalemia, resolved. 8. Peripheral arterial disease. 9. Hypertension. 10. Constipation. 11. Depression. 12. Hyperlipidemia. 13. Mrhy-bw-phqdzjhs mitral regurgitation. 14. Amfs-cr-kniakbxz tricuspid regurgitation. 15. Obstructive sleep apnea, maintained on CPAP. 16. Gastroesophageal reflux disease. 17. Hard of hearing. CONSULTANTS Dr. Reeder, Cardiology. PROCEDURES None. CLINICAL HISTORY AND HOSPITAL COURSE Mr. Powell is a nice 81-year-old male, who presents to the emergency department with complaints of shortness of breath. In the emergency department, he was found to be hypoxic, but I do not believe he is wearing his oxygen upon initial presentation. Chest x-ray revealed vascular congestion and BNP was mildly elevated. He was subsequently admitted. The patient was started on IV diuretics and Cardiology was consulted. With fluid restriction and diuresis, the patient's hypoxia has resolved. Unit #: [id number] #: [id number] Patient: CAMILO POWELL O2 saturations are back in the high 90s on his chronic 3 L of oxygen per nasal cannula continuously. 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 Heck in 3 days. We are going to continue his home dose of diuretics and these can be adjusted by Dr. Heck as an outpatient. The patient also had some mild wheezing on exam, but I tapered his steroids and he has no wheezing now. I think his COPD exacerbation is very mild and can be controlled with nebulizer treatments only. The patient today is otherwise clinically stable and will be discharged home. DISCHARGE CONDITION Stable. DISCHARGE STATUS Discharged to home with home health on discharge for PT and OT. DISCHARGE MEDICATIONS DuoNeb nebulizer treatments 3 mL every 12 hours p.r.n. for shortness of breath; Combivent Respimat one puff every 6 hours p.r.n. for shortness of breath and wheezing; Neurontin 300 mg 2 tablets b.i.d.; Lexapro 20 mg daily; Coreg 25 mg b.i.d.; Norvasc 5 mg b.i.d.; Breo Ellipta 100/25 mcg 1 puff daily; Lasix 20 mg b.i.d.; Lipitor 40 mg at bedtime; hydralazine 75 mg b.i.d.; Humulin 70/30, 30 units subcutaneously daily; Humulin N 10 units subcutaneously at bedtime and 35 units in the morning; aspirin 81 mg daily; Imdur ER 60 mg daily. Please note, lisinopril is currently being held due to increase in creatinine. DISCHARGE INSTRUCTIONS The patient is instructed to follow a heart healthy, constant carb diet. He should follow with 1800 mL fluid restricted diet. He can increase his activity as tolerated. He should wear his oxygen at all times. FOLLOWUP The patient is to follow up with Dr. Heck as previously scheduled early next week. The patient is to follow up with his primary care provider, Dr. Caryl Duarte in 2 weeks. Dictated by... Laurence Hoff M.D. LILA/donny TD: 01/18/2017 03:42 JOB #: [id number] CC: Marina Heck M.D. Unit #: [id number] #: [id number] Patient: SHERRY,JOSÉ MANUELGUY Anne DISCHARGE SUMMARY Page 1 of 1 X Laurence Hoff MD DISCHARGE SUMMARY
--- NOTE | ~2017-01-14 | HP ---
Unit #: [id number] #: [id number] Patient: CAMILO POWELL [id number] [place] [address] [facility]. [place], [place] [address] [id number] I MR#: [id number] NAME: CAMILO POWELL ROOM: [facility] Age: 81 Sex: M Admission Date: 01/14/2017 : 1935 Attending Physician: Sonja Moe M.D. Primary Care Physician: Caryl Duarte M.D. HISTORY AND PHYSICAL CHIEF COMPLAINT Short of breath HISTORY OF PRESENT ILLNESS The patient is a 81-year-old male with past medical history of chronic respiratory failure, CHF, COPD, chronic kidney disease, hypertension, hyperlipidemia, diabetes, obstructive sleep apnea, GERD, coronary artery disease, peripheral vascular disease, B12 deficiency, who presented to [facility] for evaluation of the above. The patient was apparently working on a puzzle when he possibly fell asleep and his reportedly found him face down on the puzzle. He was on home oxygen at the time. He was brought to the emergency department and found to have oxygen saturation of 75%. The patient had reportedly been out of spironalactone. The patient states that he has had a two to three day history of increasing shortness of breath and nonproductive cough. He denies any fever, no chest pain, no change in his weight. He states that he does have dyspnea on exertion when walking across the room. He states that he sleeps on his side. He does have paroxysmal nocturnal dyspnea. In the emergency department, oxygen saturation was 75%. He was placed on oxygen. He is currently saturating in the 90s. Chest x-ray showed mild vascular congestion. BNP was 279. He had an EKG that showed normal sinus rhythm. Initial cardiac enzymes were negative. He was transferred to [facility] for [facility]. PAST MEDICAL HISTORY 1. Admission to [facility] November 01, 2016, for zienu-kx-xituhwk congestive heart failure. 2. Coronary artery disease status post coronary artery bypass grafting, followed by Dr. Heck. 3. Congestive heart failure. The patient had an echocardiogram December 21, 2014, that showed an ejection fraction greater than 55% with mildly dilated right ventricle and left atrium, mild to moderate mitral regurgitation, mild to moderate tricuspid regurgitation. 4. COPD. 5. Chronic respiratory failure on 3 liters of oxygen per nasal cannula. 6. Obstructive sleep apnea, on CPAP. 7. Hypertension. 8. Hyperlipidemia. 9. Diabetes. 10. Chronic kidney disease. 11. GERD. Unit #: [id number] #: [id number] Patient: CAMILO POWELL 12. B12 deficiency. 13. Hearing impairment. 14. Peripheral vascular disease. PAST SURGICAL HISTORY 1. Cardiac catheterization. 2. Coronary artery bypass grafting. 3. Vein stripping. SOCIAL HISTORY The patient lives with his . He is a former smoker. There is no alcohol use. He works on small engines, I thought he said [employer] as well. FAMILY HISTORY Notable for coronary artery disease. ALLERGIES No known allergies. HOME MEDICATIONS 1. Spiriva Ellipta 100/25 inhaled daily 2. Humulin-N 35 units in the morning; 10 units in the evening 3. Aspirin 81 mg daily 4. Lipitor 40 mg daily 5. Lisinopril 20 mg daily 6. Albuterol ipatropium inhaled every 12 hours 7. Amlodipine 5 mg twice daily 8. Coreg 25 mg twice daily 9. Combivent 4 times daily p.r.n. 10. Escitalopram 20 mg daily 11. Humulin 70/30, 30 units daily 12. Neurontin 600 mg twice daily 13. Imdur 60 mg daily 14. Hydralazine 50 mg twice daily 15. Lasix 20 mg twice daily REVIEW OF SYSTEMS A complete review of systems is negative except as indicated in the HPI. DIAGNOSTIC STUDIES CARDIOLOGY: EKG shows normal sinus rhythm with a rate of 69 beats per minute. There is T wave flattening in V6. IMAGING: Chest x-ray shows cardiomegaly and mild congestion. LABORATORY: Complete blood count notable for hemoglobin and hematocrit of 12.1 no active disease 37 respectively. INR is 1.16. Basic metabolic panel notable for potassium of 5.8, chloride 110, glucose 233, BUN and creatinine 35 and 1.45 respectively. PHYSICAL EXAMINATION VITAL SIGNS: Temperature 97, pulse 71, respirations 22, oxygen saturation 75% on room air. GENERAL: The patient is a male who is awake and alert, in no acute distress. HEENT: The head is atraumatic. Mucous membranes are moist. Unit #: [id number] #: [id number] Patient: CAMILO POWELL NECK: Supple. Trachea is midline. CARDIOVASCULAR: Regular rate and rhythm. LUNGS: Demonstrate bibasilar crackles and a few expiratory wheezes. Breathing is not labored with conversation. ABDOMEN: Soft, nontender, with bowel sounds present in all four quadrants. EXTREMITIES: Show mild edema. NEUROLOGIC: The patient is awake and alert. He follows commands. The patient is hard of hearing. PSYCHIATRIC: Mood and affect are normal. The patient is cooperative. SKIN: Of examined areas is warm and dry. ASSESSMENT The patient is an 81-year-old male with: 1. Uzgnx-bk-knxpbfd respiratory failure, hypoxic. 2. Congestive heart failure with ejection fraction of greater than 55% noted on echocardiogram from December 21, 2014. 3. Chronic obstructive pulmonary disease. 4. Sbiyh-ei-bwelmtw kidney disease. The patient's creatinine was 1.45 today. It was 1.1 on November 02, 2016. 5. Hyperkalemia. 6. Hypertension. 7. Hyperlipidemia. 8. Diabetes. 9. Obstructive sleep apnea on CPAP. 10. Gastroesophageal reflux disease. 11. Coronary artery disease status post coronary artery bypass grafting. 12. Peripheral vascular disease. 13. B12 deficiency. 14. Former smoker. 15. Hearing impaired. PLAN 1. Admit to intermediate level. 2. Two gram sodium 1800 mL fluid-restricted heart healthy, consistent carbohydrate diet. 3. Strict intake and output. 4. Daily weights. 5. Serial cardiac enzymes. 6. Two-D echocardiogram if not done within the past year. 7. Lasix 20 mg IV every [address] Ordaz regarding congestive heart failure. 9. Supplemental oxygen. 10. DuoNeb every 4 hours. 11. Solu-Medrol 80 mg IV every 12 hours. 12. Neuro checks. 13. Urinalysis with culture and sensitivity. 14. Stat labs to follow hyperkalemia, noted at outlying facility. 15. CPAP at home settings. 16. Low-dose sliding scale with Accu-Chek. 17. Repeat labs in the morning. 18. Additional workup and consultants based on above. 19. Sequential compression devices for deep venous thrombosis prophylaxis. Regarding code status, the patient is a full code. Unit #: [id number] #: [id number] Patient: CAMILO POWELL Dictated by Arin Eli/sonny TD: 01/14/2017 19:53 JOB #: [id number] HISTORY AND PHYSICAL Page 1 of 1 X Sonja Moe MD X HISTORY AND PHYSICAL
[~2017-01-14 10:11] MED LIST changes: +AMLODIPINE BESYL5 MG PO; +COMBIVENT RESPIM4 GM INH; +ESCITALOPRAM OX10 MG PO; +HUMULIN 70100 UNIT/1 SUBQ; +HUMULIN N100 UNIT/2 SUBQ; +ISORDIL10 MG PO; +LEXAPRO20 MG PO; +NEURONTIN300 MG PO
[2017-01-14] MEDS ORDERED: LASIX20 MG PO (12:56)
[2017-01-14 16:45] LABS: ALBUMIN SERUM 4.4 g/dL (3.5-5.0); BILIRUBIN,TOTAL 1.6 mg/dL (0.2-2.0); BUN/CREATININE RATIO 27.5; CALCIUM SERUM 9.6 mg/dL (8.4-10.2); CREATININE SERUM 1.2 mg/dL (0.6-1.4); GLOM FILT RATE Estimated 56.8 mL/min (>60); MAGNESIUM 2.1 mg/dL (1.6-3.0)
[2017-01-14 16:48] LABS: POTASSIUM 5.6 mmol/L (3.5-5.1)
[2017-01-14 19:49] LABS: URINE APPEARANCE CLEAR; URINE BILIRUBIN NEG (NEG); URINE BLOOD NEG (NEG); URINE COLOR YELLOW; URINE GLUCOSE 100 MG/DL (NEG); URINE KETONE NEG (NEG); URINE LEUKOCYTE ESTERASE NEG (NEG); URINE NITRATE NEG (NEG); URINE PROTEIN 2+ (NEG); URINE SPECIFIC GRAVITY 1.011 (1.003-1.035); URINE UROBILINOGEN 0.2 MG/DL (NEG)
[2017-01-14 19:52] LABS: URBCS1 AUWI 0-2 /[HPF] (0-2); URINE BACTERIA AUWI NEG (NEGATIVE); URINE SQUAMOUS EPITHELIAL CELL NONE SEEN /[HPF]; UWBCS1 AUWI 0-2 (0-5)
[2017-01-15 01:22] LABS: BUN/CREATININE RATIO 26.15; CALCIUM SERUM 9.1 mg/dL (8.4-10.2); CREATININE SERUM 1.3 mg/dL (0.6-1.4); GLOM FILT RATE Estimated 51.6 mL/min (>60); POTASSIUM 4.9 mmol/L (3.5-5.1)
[2017-01-15 05:32] LABS: HEMOGLOBIN 11.9 gm/dL (13.0-16.0); MEAN CELL VOLUME 87.6 FL (83-96); MEAN CORPUSCULAR HEMOGLOBIN 28.1 PG (28-34); MEAN CORPUSCULAR HGB CONC 32.1 g/dL (30-36); MEAN PLATELET VOLUME 7.7 FL (6.5-11.5); RED BLOOD COUNT 4.23 X10e (3.90-5.60); RED CELL DISTRIBUTION WIDTH 17.4 % (11.0-15.5); WHITE BLOOD COUNT 12.6 X10e3 (4.0-10.5)
[2017-01-15 06:06] LABS: ALBUMIN SERUM 3.9 g/dL (3.5-5.0); BILIRUBIN,TOTAL 1.3 mg/dL (0.2-2.0); BUN/CREATININE RATIO 29.16; CALCIUM SERUM 8.9 mg/dL (8.4-10.2); CREATININE SERUM 1.2 mg/dL (0.6-1.4); GLOM FILT RATE Estimated 56.8 mL/min (>60); MAGNESIUM 1.9 mg/dL (1.6-3.0); POTASSIUM 4.8 mmol/L (3.5-5.1); PROTEIN TOTAL SERUM 7.3 g/dL (6.0-8.3)
[2017-01-16 06:42] LABS: BUN/CREATININE RATIO 33.33; CALCIUM SERUM 9.1 mg/dL (8.4-10.2); CREATININE SERUM 1.5 mg/dL (0.6-1.4); GLOM FILT RATE Estimated 43.4 mL/min (>60); POTASSIUM 4.7 mmol/L (3.5-5.1)
[2017-01-16] MEDS ORDERED: HYDRALAZINE HCL50 MG PO (13:18)
== END 2017-01-16 14:02 | disposition home health service (06) | DRG 291 ==
LOC: C3A PCU 10:11 → UNDOADMIN 10:11 → C3A PCU 14:10
PROVIDERS: Family Medicine; Nurse Practitioner
DX: I13.0 Hypertensive heart and chronic kidney disease with heart failure and stage 1 through stage 4 chronic kidney disease, or unspecified chronic kidney disease (principal); I50.33 Acute on chronic diastolic (congestive) heart failure; J96.21 Acute and chronic respiratory failure with hypoxia; N17.9 Acute kidney failure, unspecified; J44.1 Chronic obstructive pulmonary disease with (acute) exacerbation; E11.22 Type 2 diabetes mellitus with diabetic chronic kidney disease; N18.3 Chronic kidney disease, stage 3 (moderate); Z87.891 Personal history of nicotine dependence; Z79.4 Long term (current) use of insulin; I25.10 Atherosclerotic heart disease of native coronary artery without angina pectoris; Z95.1 Presence of aortocoronary bypass graft; I73.9 Peripheral vascular disease, unspecified; E87.5 Hyperkalemia; K59.00 Constipation, unspecified; F32.9 Major depressive disorder, single episode, unspecified; E78.5 Hyperlipidemia, unspecified; K21.9 Gastro-esophageal reflux disease without esophagitis; G47.33 Obstructive sleep apnea (adult) (pediatric); H91.90 Unspecified hearing loss, unspecified ear; I08.1 Rheumatic disorders of both mitral and tricuspid valves; E53.8 Deficiency of other specified B group vitamins; Z79.82 Long term (current) use of aspirin
CPT/HCPCS: 80048; 80053; 81003; 82550; 82947; 83735; 84484; 85027; 87086; 94640; 94664; 94760; 97162; 97166; 97530; G8978-GP; G8979-GP; G8980-GP; G8987-GO; G8988-GO; G8989-GO; J1815; J1940; J2930

== ENCOUNTER 2017-03-10 11:35 | Inpatient (IN) | payer MEDICARE, OTHER ==
[~2017-03-10] VITALS: Ht 172.7 cm; Wt 89.0 kg
--- NOTE | ~2017-03-10 | EKG ---
PATIENT: CAMILO POWELL UNIT #: [id number] Ventricular Rate: 53 BPM Atrial Rate: 53 BPM P-R Interval: 174 ms QRS Duration: 80 ms Q-T Interval: 422 ms QTC Calculation(Bezet): 395 ms P Cleves: 50 degrees Calculated R Cleves: 33 degrees Calculated T Cleves: 134 degrees Diagnosis Line: Sinus bradycardia Diagnosis Line: Nonspecific ST and T wave abnormality Diagnosis Line: Abnormal ECG Diagnosis Line: When compared with ECG of 01-NOV-2016 15:04, Diagnosis Line: Nonspecific T wave abnormality, improved in Diagnosis Line: Inferior leads Diagnosis Line: QT has shortened Diagnosis Line: Confirmed by KHUSHBOO CIFUENTES MD ([id number]) on Diagnosis Line: 03/11/2017 4:40:50 PM INTERPRETING MD: [place]
--- NOTE | ~2017-03-10 | US77 ---
[facility] A Service of [facility] RADIOLOGY TEXT RESULTS PATIENT: CAMILO POWELL LOCATION: [facility] 575-01 : 36 UNIT #: [id number] AGE: [address]: Laurence Hoff MD SEX: M ORDER DR: [id number] [facility] [address] [facility]. [place], [place] [address] [id number] MR#: [id number] Acc #: [id number] NAME: CAMILO POWELL : 1935 SEX: M STUDY DATE/TIME: 03/10/2017 16:51 UNIT: [facility] ROOM: [facility] STUDY DESCRIPTION: US Kidney Bilateral Complete Attending Physician: Sonja Moe M.D. Ordering Physician: Catie Hoffmann M.D. Primary Care Physician: Caryl Duarte M.D. MEDICAL IMAGING REPORT This report is preliminary unless electronic signature is present EXAM Complete bilateral renal ultrasound DATE: 03/10/2017 HISTORY 82-year-old male with abnormal renal function test upon admission. BUN 54. Creatinine 1.8. eGFR 34.5. COMPARISON No prior renal imaging at this institution for comparison. Correlation is made to CT chest without contrast 09/21/2016. FINDINGS Right kidney measures 11.2 cm x 6.8 cm x 6.6 cm. The left kidney measures 13.5 cm x 6.6 cm 6.7 cm. A cyst in the left lower renal pole measures 1.4 cm. The renal echotexture bilaterally appears mildly echogenic suggesting changes of chronic medical renal disease, but the cortical thickness appears relatively well preserved. No suspicious solid renal lesion is seen. No shadowing stone or hydronephrosis is evident. Urinary bladder is unremarkable. IMPRESSION 1. Slight increase in bilateral renal cortical echotexture may represent changes of chronic medical renal disease. Normal cortical thickness. Normal renal size. 2. No hydronephrosis. 3. 1.4 cm left renal cyst. Dictated by... [facility] A Service of [facility] RADIOLOGY TEXT RESULTS PATIENT: CAMILO POWELL LOCATION: [facility] 575-01 : 36 UNIT #: [id number] AGE: [address]: Laurence Hoff MD SEX: M ORDER DR: Brit Murphy M.D. THIS IS AN ELECTRONICALLY VERIFIED REPORT Brit Murphy M.D. at 03/11/2017 8:54 AM SID/linn TD: 03/11/2017 00:39 JOB #: [id number] MEDICAL IMAGING REPORT Page 1 of 1 COPY
--- NOTE | ~2017-03-10 | HP ---
Unit #: [id number] #: [id number] Patient: CAMILO POWELL [id number] [facility]. [place], [place] [address] [id number] MR#: [id number] NAME: CAMILO POWELL ROOM: Age: 82 Sex: M Admission Date: 03/10/2017 : 1935 Attending Physician: Madi Suh M.D. Primary Care Physician: Caryl Duarte M.D. HISTORY AND PHYSICAL CHIEF COMPLAINT Chief complaint is abnormal labs. HISTORY OF PRESENT ILLNESS The patient is an 82-year-old male with past medical history of chronic respiratory failure, CHF, COPD, chronic kidney disease, hypertension, hyperlipidemia, diabetes, obstructive sleep apnea, GERD, coronary artery disease, peripheral vascular disease, who presented to the emergency department for evaluation of the above. The patient was in his usual state of health until March 07, 2017 when he went to his primary care physician's office for routine checkup. The patient was called on the and told to return to the office to repeat blood work due to lab abnormalities. He was then called this morning and told to come to the emergency department due to high potassium. The patient denies any chest pain; no palpitations, no fever, no cough or cold symptoms, no vomiting or diarrhea. His appetite has been good. He has been taking his medications as prescribed. Upon arrival in the emergency department, initial pulse was 54, blood pressure 127/48. Laboratory notable for potassium of 7.7, BUN and creatinine 54 and 1.8 respectively. He was given 60 grams of Kayexalate, 10 units of insulin, an amp of D50 as well as 1 L of normal saline. He is being admitted to [facility] for evaluation and further treatment. PAST MEDICAL HISTORY 1. Admission to [facility] January 14 through the 2016 for CHF exacerbation. 2. Congestive heart failure, followed by Dr. Heck. The patient had an echocardiogram December 21, 2014 that showed an ejection fraction greater than 55% with mildly dilated right ventricle and left atrium, mild to moderate mitral regurgitation, mild to moderate tricuspid regurgitation. 3. Coronary artery disease, status post coronary artery bypass grafting. 4. COPD. 5. Chronic respiratory failure on 3 L of oxygen per nasal cannula. 6. Obstructive sleep apnea on CPAP. 7. Hypertension. 8. Hyperlipidemia. 9. Diabetes. 10. Chronic kidney disease, stage 3 with a baseline creatinine of 1.3. The patient sees Dr. French Hoffmann. Unit #: [id number] #: [id number] Patient: CAMILO POWELL 11. GERD. 12. B12 deficiency. 13. Hearing impairment. 14. Peripheral vascular disease. PAST SURGICAL HISTORY 1. Cardiac catheterization. 2. Coronary artery bypass grafting. 3. Vein stripping. SOCIAL HISTORY The patient lives with his . He is a former smoker. There is no alcohol use. He works on small engines. FAMILY HISTORY Family history is notable for coronary artery disease. ALLERGIES No known allergies. HOME MEDICATIONS 1. Amlodipine 5 mg twice daily. 2. Aspirin 81 mg daily. 3. Lipitor 40 mg daily. 4. Breo Ellipta inhaled daily. 5. Carvedilol 25 mg twice daily. 6. Lasix 20 mg twice daily. 7. Gabapentin 600 mg twice daily. 8. NPH 30 units in the morning, 20 units in the evening. 9. Hydralazine 25 mg every other day. 10. Ipratropium albuterol twice daily p.r.n. 11. Isosorbide mononitrate 60 mg daily. 12. Lexapro 20 mg daily. 13. Aldactone 12.5 mg daily. 14. Ventolin inhaled daily. 15. Zestril 20 mg daily. REVIEW OF SYSTEMS A complete review of systems is negative except as indicated in the HPI. DIAGNOSTIC STUDIES CARDIOVASCULAR: EKG showed sinus bradycardia with a rate of 53 beats per minute. There is T-wave flattening in leads V3 through V6. LABORATORY: Troponin is less than 0.05. Complete blood count notable for hemoglobin and hematocrit of 10.9 and 33.6 respectively. Urinalysis notable for 1+ protein. Comprehensive metabolic panel notable for potassium of 7.7, chloride is 115, BUN and creatinine 54 and 1.8 respectively. PHYSICAL EXAMINATION VITAL SIGNS: Temperature is 97.3. Pulse 54. Respirations 20. Blood pressure 127/48. Oxygen saturation 92% on room air. GENERAL: The patient is a very pleasant male who is awake and alert, in no acute distress. HEENT: The head is atraumatic. Mucous membranes are moist. NECK: Is supple. Trachea is midline. CARDIOVASCULAR: Is regular rate and rhythm. Unit #: [id number] #: [id number] Patient: CAMILO POWELL LUNGS: Are clear to auscultation bilaterally with no increased work of breathing. ABDOMEN: is soft, nontender, with bowel sounds present in all four quadrants. EXTREMITIES: Are nontender with no pedal edema. NEURO: The patient is awake and alert. He follows commands. He is hard of hearing. PSYCH: Mood and affect are normal. The patient is cooperative. SKIN: Of examined areas is warm and dry. ASSESSMENT The patient is an 82-year-old male with: 1. Hyperkalemia. The patient is on Aldactone and lisinopril which could be contributing. Potassium was 7.7. He was given 60 g of Kayexalate, 10 units of insulin, an amp of D50 and a 1 L normal saline bolus in the emergency department. I have also ordered an amp of calcium gluconate as well as 80 mg of Lasix and a DuoNeb to be given now. 2. Guofq-jc-cklxdkz kidney disease. The patient has stage 3 chronic kidney disease with a baseline creatinine of 1.3. Creatinine is 1.8 today. 3. Chronic anemia. 4. Hypertension. 5. Hyperlipidemia. 6. Congestive heart failure with ejection fraction of greater than 55% noted on echocardiogram December 21, 2014. 7. COPD. 8. Chronic respiratory failure on 3 L of oxygen per nasal cannula continuous. 9. Coronary artery disease, status post coronary artery bypass grafting. 10. Valvular heart disease. 11. Obstructive sleep apnea on CPAP. 12. GERD. 13. Peripheral arterial disease. 14. Diabetes. 15. Hearing impairment. 16. Former smoker. PLAN 1. Admit to intermediate level. 2. Two gram sodium, 1800 mL fluid restricted, heart healthy consistent carb diet. 3. Supplemental oxygen. 4. Repeat BMP now to follow up hyperkalemia. Will likely also order repeat later this afternoon depending on the trend. 5. Hold Aldactone and lisinopril. 6. Check CPK as well as magnesium and phosphorus levels. 7. Consult Dr. Hoffmann regarding hyperkalemia. I have spoken with him regarding this patient. He agrees to see him in consultation. 8. Bladder scan, check post-void residual. 9. Repeat labs in the morning. 10. Serial cardiac enzymes. 11. CPAP at home settings. 12. SCDs for DVT prophylaxis. 13. Additional workup and consultants based on above. Unit #: [id number] #: [id number] Patient: CAMILO POWELL Dictated by Arin Eli/oswaldo TD: 03/10/2017 15:28 JOB #: [id number] HISTORY AND PHYSICAL Page 1 of 1 X Sonja Moe MD X HISTORY AND PHYSICAL
--- NOTE | ~2017-03-10 | CO ---
Unit #: [id number] #: [id number] Patient: CAMILO POWELL [id number] [place], [place] [address] [id number] I MR#: [id number] NAME: CAMILO POWELL ROOM: 57 Age: 82 Sex: M Admission Date: 03/10/2017 : 1935 Attending Physician: Laurence Hoff M.D. Primary Care Physician: Caryl Duarte M.D. Consultation Date: 03/10/2017 CONSULTATION REPORT REASON FOR CONSULTATION Hyperkalemia. Thank you very much for asking me to see this patient in consultation. HISTORY OF PRESENT ILLNESS Mr. Powell is an 82-year-old male with a history of chronic kidney disease, stage 3. He has been seen in our office in the past who was noted in 08/2016 to have a potassium of 4.8 and a creatinine of 1.38; in 02/2016, creatinine was 1.4; in 03/2015, creatinine 1.2. He has a history of diabetes and hypertension as well, who presented to the hospital after been having blood work done by his primary physician several times and he had an increased potassium, at which time, he was instructed to go to the hospital here. The patient states he has had some increased shortness of breath for months, may be a little worse over the last week. He denies taking any nonsteroidals. He does eat a lot of tomatoes over the last few weeks, he states. He is not having any chest pain. No nausea, vomiting, or diarrhea. No significant urinary symptoms. PAST MEDICAL HISTORY History of chronic kidney disease, stage 3; history of diabetes mellitus; history of hypertension; history of COPD; history of mild mitral regurgitation, ynsp-og-fkgjodqi tricuspid regurg; history of atherosclerotic coronary artery disease, status post coronary artery bypass graft; history of hyperlipidemia; history of gastroesophageal reflux disease; history of depression; history of obstructive sleep apnea. MEDICATIONS At home include gabapentin, Lipitor, hydralazine, isosorbide, aspirin, Norvasc, Coreg, Lasix 20 mg b.i.d., spironolactone 12.5 mg a day, lisinopril 20 mg a day. FAMILY HISTORY Positive for heart disease or stroke. No history of kidney disease. SOCIAL HISTORY He does not smoke or drink. He is . ALLERGIES No known drug allergies. REVIEW OF SYSTEMS As mentioned in the HPI, otherwise negative. Unit #: [id number] #: [id number] Patient: CAMILO POWELL PHYSICAL EXAMINATION VITAL SIGNS: Blood pressure is 120 to 150 over 44 to 55, his pulse is 53 to 63, his temperature is 97.4. HEENT: Normocephalic and atraumatic. Pupils are equal, round, and reactive to light. Extraocular muscles are intact. Hearing appears normal. Mouth clear. No erythema. No exudate. NECK: Supple. No JVD. CARDIAC: Regular rate and rhythm without a rub. No S3, S4. LUNGS: Clear bilaterally. No wheezes, rhonchi, or rales. ABDOMEN: Bowel sounds positive. Nontender. Soft. No masses felt. No hepato-organomegaly noted. EXTREMITIES: He has no edema, clubbing or cyanosis. DIAGNOSTIC STUDIES LABORATORY RESULTS: He had a UA today shows specific gravity of 1.015, 1+ protein, no rbc's or wbc's. Hemoglobin is 10.9, white count 6900, platelets 176,000. Sodium is 142, potassium 7.7, bicarb 22, BUN of 54, creatinine 1.0, glucose is 92, calcium is 9.2, albumin is 3.7. ASSESSMENT AND PLAN 1. Hyperkalemia. This patient with increased significant potassium, probably combination of renal insufficiency on top of his lisinopril and his spironolactone as well as his increased potassium intake. I agree with stopping his spironolactone and his lisinopril. Agree with medical management for now, Kayexalate, bicarb, IV calcium, insulin, D50, IV diuretics. Certainly, we will check a stat BMP now. If his potassium does not continue to improve, we will need to do emergent hemodialysis. His EKG does not show any peaked T-waves, but he is bradycardic, but he is on Coreg, but again, if his potassium does not continue to improve with medical management, then we will have to do emergent hemodialysis. I have discussed this with the patient and his and they understand. 2. Acute on chronic kidney disease. The patient has increased creatinine. Again, I am not sure of his volume status. He has had some increased shortness of breath, but he does not appear to be volume overloaded at this time. Again, we will hold his spironolactone and his lisinopril. Check a bladder scan postvoid residual. Check a renal ultrasound. We will follow. 3. Diabetes mellitus. 4. History of atherosclerotic coronary artery disease. 5. Hypertension. Again, we will probably keep him off an angiotensin receptor rell, ROSA inhibitor and potassium-sparing diuretics in the future. Dictated by.Arin Conroy/donny TD: 03/10/2017 23:43 JOB #: [id number] Unit #: [id number] #: [id number] Patient: CAMILO POWELL CONSULTATION REPORT Page 1 of 1 X Adenike Hoffmann MD X CONSULTATION REPORT
--- NOTE | ~2017-03-10 | DS ---
Unit #: [id number] #: [id number] Patient: CAMILO POWELL [id number] [place], [place] [address] [id number] MR#: [id number] NAME: CAMILO POWELL ROOM: [facility] Age: 82 Sex: M Admission Date: 03/10/2017 : 1935 Discharge Date: 03/12/2017 Attending Physician: Laurence Hoff M.D. Primary Care Physician: Caryl Duarte M.D. DISCHARGE SUMMARY PRINCIPAL DIAGNOSIS 1. Hyperkalemia, likely medication-induced. 2. Acute kidney injury on chronic kidney disease stage 3, prerenal. Discharge creatinine 1.4 and baseline creatinine approximately 1.4. 3. Chronic hypoxic/hypercapnic respiratory failure, maintained on 3 L of oxygen per nasal cannula continuously. 4. Chronic diastolic congestive heart failure without acute exacerbation. Ejection fraction 55%. 5. Mild to moderate mitral regurgitation. 6. Coronary artery disease. 7. Chronic obstructive pulmonary disease. 8. Obstructive sleep apnea. 9. Hypertension. 10. Hyperlipidemia. 11. Diabetes mellitus type 2, insulin requiring, with stable glucose readings. 12. Gastroesophageal reflux disease. 13. Peripheral arterial disease. 14. Hard of hearing. 15. Diabetic peripheral neuropathy. 16. Obesity. CONSULTANTS Dr. Hoffmann - Nephrology. PROCEDURES Bilateral renal ultrasound March 10, 2017, with increased renal echotexture consistent with chronic medical renal disease. No evidence of hydronephrosis. 1.4 cm left renal cyst noted. CLINICAL HISTORY AND HOSPITAL COURSE Mr. Powell is a nice 82-year-old male sent to the emergency department secondary to outpatient labs revealing a potassium of 7.7. Creatinine was also elevated at 1.8, up from baseline. Patient was subsequently admitted. Fortunately, patient had no associated EKG changes. Nephrology was consulted. Patient was given Kayexalate and placed on IV fluids. Associated nephrotoxic medications were discontinued. Over the course of the next 36 hours, potassium normalized. This morning, potassium is now down to 4.2 and patient feels fine. Patient was on lisinopril in addition to Aldactone at home and I suspect these were the offending medications. He was also on Lasix. This may have contributed to his acute kidney injury. Given renal function is improved, I am going to discontinue Unit #: [id number] #: [id number] Patient: CAMILO POWELL lisinopril and Aldactone, place him on a lower dose of Lasix, and to give followup with Dr. Hoffmann as an outpatient. Patient's other chronic conditions all remain stable. DISCHARGE CONDITION Stable. DISCHARGE STATUS Discharge to home. DISCHARGE MEDICATIONS 1. Ventolin in haler, 1 puff daily. 2. Duo-Neb nebulizer treatments, 3 mL b.i.d. p.r.n. for shortness of breath. 3. Oxygen at 3 L per nasal cannula continuously. 4. Gabapentin 600 mg b.i.d. 5. Lexapro 20 mg daily. 6. Coreg 25 mg b.i.d. 7. Norvasc 5 mg b.i.d. 8. Breo Ellipta 100/25 mcg, 1 puff daily. 9. Lasix 20 mg daily. 10. Lipitor 40 mg daily. 11. Humulin N 30 units in the morning and 20 units in the evening. 12. Aspirin 81 mg daily. 13. Imdur ER 60 mg daily. DISCHARGE INSTRUCTIONS Patient was instructed to follow a low potassium heart healthy constant carb diet. He should monitor his salt intake at home as well. He should wear his oxygen at all times. He can increase his activity as tolerated. FOLLOWUP Patient will follow up with Dr. Hoffmann in approximately two weeks. Should have a BMP done in one week with results faxed to Dr. Hoffmann. Patient can follow up with his primary care provider, Caryl Duarte, in two weeks as well. Dictated by... Laurence Hoff M.D. LILA/libby TD: 03/14/2017 16:41 JOB #: [id number] Unit #: [id number] #: [id number] Patient: CAMILO POWELL DISCHARGE SUMMARY Page 1 of 1 X Laurence Hoff MD DISCHARGE SUMMARY
[2017-03-10] MEDS ORDERED: HUMULIN N100 UNIT/2 SUBQ ×2 (12:16)
[2017-03-10] MEDS ORDERED: ALDACTONE25 MG PO ×2 (12:21→14:29)
[2017-03-10] MEDS ORDERED: LISINOPRIL20 MG PO (12:21)
[2017-03-10 12:52] LABS: URINE SOURCE CLEAN CATCH
[2017-03-10 13:03] LABS: POC - CKMB 2.1 ng/mL (0.0-7.9); POC - TROPONIN <0.05 ng/mL (<=0.05)
[2017-03-10 13:16] LABS: BASOPHIL# 0.1 X10e3 (0-0.3); BASOPHIL% 0.8 % (0-2.5); EOSINOPHIL# 0.3 X10e3 (0-0.7); EOSINOPHIL% 4.4 % (0.0-7.0); HEMATOCRIT 33.6 % (38.0-50.0); HEMOGLOBIN 10.9 gm/dL (13.0-16.0); LYMPHOCYTE# 1.7 X10e3 (1.0-3.5); LYMPHOCYTE% 25.3 % (17.0-45.0); MEAN CORPUSCULAR HEMOGLOBIN 29.4 PG (28-34); MEAN CORPUSCULAR HGB CONC 32.3 g/dL (30-36); MEAN PLATELET VOLUME 7.4 FL (6.5-11.5); MONOCYTE# 0.5 X10e3 (0-1.0); MONOCYTE% 7.5 % (3.0-12.0); NEUTROPHIL# 4.3 X10e3 (1.5-7.1); PLATELET COUNT 176 X10e3 (140-420); RED CELL DISTRIBUTION WIDTH 17.4 % (11.0-15.5); WHITE BLOOD COUNT 6.9 X10e3 (4.0-10.5)
[2017-03-10 13:17] LABS: DIFF IND NO
[2017-03-10 13:26] LABS: URINE APPEARANCE CLEAR; URINE BILIRUBIN NEG (NEG); URINE BLOOD NEG (NEG); URINE COLOR YELLOW; URINE GLUCOSE NORM (NORM); URINE KETONE NEG (NEG); URINE LEUKOCYTE ESTERASE NEG (NEG); URINE NITRATE NEG (NEG); URINE PROTEIN 1+ (NEG); URINE SPECIFIC GRAVITY 1.015 (1.003-1.035); URINE UROBILINOGEN NORM (NORM)
[2017-03-10 13:35] LABS: CULTURE INDICATED? NO
[2017-03-10 13:49] LABS: ALBUMIN SERUM 3.9 g/dL (3.5-5.0); BILIRUBIN, DIRECT 0.1 mg/dL (0.0-0.2); BILIRUBIN,INDIRECT 0.6 mg/dL (0.0-0.9); BILIRUBIN,TOTAL 0.7 mg/dL (0.2-2.0); CALCIUM SERUM 9.2 mg/dL (8.4-10.2); CREATININE SERUM 1.8 mg/dL (0.6-1.4); GLOM FILT RATE Estimated 34.5 mL/min (>60); PROTEIN TOTAL SERUM 6.7 g/dL (6.0-8.3)
[2017-03-10 13:51] LABS: POTASSIUM 7.7 mmol/L (3.5-5.1)
[2017-03-10] MEDS ORDERED: AMLODIPINE BESYL5 MG PO (14:25)
[2017-03-10] MEDS ORDERED: ASPIRIN81 M2 PO (14:25)
[2017-03-10] MEDS ORDERED: LIPITOR40 MG PO (14:25)
[2017-03-10] MEDS ORDERED: LASIX20 MG PO (14:26)
[2017-03-10] MEDS ORDERED: BREO ELLIPTA 11 EACH INH (14:26)
[2017-03-10] MEDS ORDERED: CARVEDILOL25 M1 PO (14:26)
[2017-03-10] MEDS ORDERED: HUMULIN N100 UNIT/1 (14:27)
[2017-03-10] MEDS ORDERED: GABAPENTIN300 MG PO (14:27)
[2017-03-10] MEDS ORDERED: IPRAT-ALBUT 0.5-3 ML NEB (14:28)
[2017-03-10] MEDS ORDERED: HYDRALAZINE HCL50 MG PO (14:28)
[2017-03-10] MEDS ORDERED: ISOSORBIDE MONO60 M1 PO (14:29)
[2017-03-10] MEDS ORDERED: LEXAPRO20 MG PO (14:29)
[2017-03-10] MEDS ORDERED: LISINOPRIL PO (14:30)
[2017-03-10] MEDS ORDERED: ALBUTEROL17 GM INH (14:30)
[2017-03-10] MEDS ORDERED: PATIENT'S PHARMACY (14:31)
[2017-03-10 16:54] LABS: BUN/CREATININE RATIO 29.44; CREATININE SERUM 1.8 mg/dL (0.6-1.4); GLOM FILT RATE Estimated 34.5 mL/min (>60); MAGNESIUM 2.1 mg/dL (1.6-3.0); PHOSPHOROUS 5.1 mg/dL (2.5-4.6)
[2017-03-10 17:02] LABS: POTASSIUM 6.6 mmol/L (3.5-5.1)
[2017-03-10 19:49] LABS: BUN/CREATININE RATIO 29.44; CALCIUM SERUM 9.4 mg/dL (8.4-10.2); CREATININE SERUM 1.8 mg/dL (0.6-1.4); GLOM FILT RATE Estimated 34.5 mL/min (>60)
[2017-03-10 19:53] LABS: POTASSIUM 6.2 mmol/L (3.5-5.1)
[2017-03-10 20:38] LABS: CK TOTAL 56 IU/L (36-174)
[2017-03-11 01:23] LABS: BUN/CREATININE RATIO 31.87; CALCIUM SERUM 9.1 mg/dL (8.4-10.2); CREATININE SERUM 1.6 mg/dL (0.6-1.4); GLOM FILT RATE Estimated 39.8 mL/min (>60)
[2017-03-11 01:27] LABS: POTASSIUM 5.5 mmol/L (3.5-5.1)
[2017-03-11 01:29] LABS: CK TOTAL 48 IU/L (36-174)
[2017-03-11 07:14] LABS: HEMATOCRIT 36.7 % (38.0-50.0); HEMOGLOBIN 12.1 gm/dL (13.0-16.0); MEAN CORPUSCULAR HEMOGLOBIN 29.4 PG (28-34); MEAN PLATELET VOLUME 7.4 FL (6.5-11.5); RED BLOOD COUNT 4.13 X10e (3.90-5.60); RED CELL DISTRIBUTION WIDTH 17.2 % (11.0-15.5)
[2017-03-11 07:42] LABS: BUN/CREATININE RATIO 29.37; CALCIUM SERUM 9.6 mg/dL (8.4-10.2); CREATININE SERUM 1.6 mg/dL (0.6-1.4); GLOM FILT RATE Estimated 39.8 mL/min (>60); MAGNESIUM 1.7 mg/dL (1.6-3.0); PHOSPHOROUS 4.9 mg/dL (2.5-4.6); PROTEIN TOTAL SERUM 7.3 g/dL (6.0-8.3)
[2017-03-11 07:46] LABS: POTASSIUM 5.7 mmol/L (3.5-5.1)
[2017-03-11 16:44] LABS: BUN/CREATININE RATIO 32.85; CREATININE SERUM 1.4 mg/dL (0.6-1.4); GLOM FILT RATE Estimated 46.8 mL/min (>60)
[2017-03-12 07:23] LABS: BUN/CREATININE RATIO 29.28; CALCIUM SERUM 8.6 mg/dL (8.4-10.2); CREATININE SERUM 1.4 mg/dL (0.6-1.4); GLOM FILT RATE Estimated 46.8 mL/min (>60); POTASSIUM 4.2 mmol/L (3.5-5.1)
[2017-03-12] MEDS ORDERED: BMP (LAB) (09:01)
== END 2017-03-12 14:01 | disposition home or self-care (01) | DRG 683 ==
LOC: CED 11:35 → CEDOF 14:50 → C5C 14:50 → CEDOF 15:35 → CED 15:35 → C5C 18:13
PROVIDERS: Emergency Medicine; Family Medicine; Internal Medicine; Internal Medicine Nephrology
DX: N17.9 Acute kidney failure, unspecified (principal); I13.0 Hypertensive heart and chronic kidney disease with heart failure and stage 1 through stage 4 chronic kidney disease, or unspecified chronic kidney disease; J96.11 Chronic respiratory failure with hypoxia; J96.12 Chronic respiratory failure with hypercapnia; I50.32 Chronic diastolic (congestive) heart failure; I08.1 Rheumatic disorders of both mitral and tricuspid valves; E11.22 Type 2 diabetes mellitus with diabetic chronic kidney disease; E87.5 Hyperkalemia; N18.3 Chronic kidney disease, stage 3 (moderate); I25.10 Atherosclerotic heart disease of native coronary artery without angina pectoris; G47.33 Obstructive sleep apnea (adult) (pediatric); E78.5 Hyperlipidemia, unspecified; K21.9 Gastro-esophageal reflux disease without esophagitis; I73.9 Peripheral vascular disease, unspecified; E11.42 Type 2 diabetes mellitus with diabetic polyneuropathy; E66.9 Obesity, unspecified; H91.90 Unspecified hearing loss, unspecified ear; Z79.82 Long term (current) use of aspirin; Z82.3 Family history of stroke; Z79.4 Long term (current) use of insulin; Z95.1 Presence of aortocoronary bypass graft; E53.8 Deficiency of other specified B group vitamins; Z82.49 Family history of ischemic heart disease and other diseases of the circulatory system; Z87.891 Personal history of nicotine dependence; Z68.32 Body mass index [BMI] 32.0-32.9, adult
CPT/HCPCS: 76770; 80048; 80053; 80076; 81003; 82550; 82553; 82947; 83735; 83880; 84100; 84300; 84484; 85025; 85027; 86334; 89190; 93005; 94640; 94664; 94760; 96361; 96374; 96375; 99291; J0610; J1940

== ENCOUNTER → 2017-03-30 | Outpatient (CLI) | payer MEDICARE, OTHER ==
[~2017-03-30] MED LIST changes: +ALBUTEROL17 GM INH; +BMP (LAB); +CARVEDILOL25 M1 PO; +GABAPENTIN300 MG PO; +HUMULIN N100 UNIT/1; +IPRAT-ALBUT 0.5-3 ML NEB; +ISOSORBIDE MONO60 M1 PO; +PATIENT'S PHARMACY
--- NOTE | ~2017-03-30 | CT57 ---
[facility] A Service of [facility] RADIOLOGY TEXT RESULTS PATIENT: CAMILO POWELL RAY LOCATION: [facility] : 36 UNIT #: [id number] AGE: [address]: Rafi Vidales MD SEX: M ORDER DR: [id number] [facility] [address] [facility]. [place], [place] [address] [id number] MR#: [id number] Acc #: [id number] NAME: CAMILO POWELL : 1935 SEX: M STUDY DATE/TIME: 03/30/2017 9:09 UNIT: [facility] ROOM: STUDY DESCRIPTION: CT Chest Wo Cont Attending Physician: Simeon Vidales M.D. Referring Physician: Simeon Vidales M.D. Ordering Physician: Simeon Vidales M.D. Primary Care Physician: Caryl Duarte M.D. MEDICAL IMAGING REPORT This report is preliminary unless electronic signature is present EXAM CT of the chest without contrast INDICATION Followup pulmonary nodule. TECHNIQUE CT of the chest was performed without contrast. Coronal and sagittal reformatted images were obtained. This CT examination was performed with one or more of the following radiation dose reduction techniques: automatic exposure control, adjustment of mA and/or kV according to patient size, and iterative reconstruction. COMPARISON 09/21/2016. FINDINGS Stable chronic-appearing scarring or atelectasis in the posterior aspect of the right upper lobe when comparing studies dating back to 03/18/2015. There is a new ground-glass opacity in the periphery of the right lower lobe on image 100 measuring about 1.3 cm. There is also some increased ground-glass opacification more distally. There is an ill-defined area of ground glass opacification in the inferior right lower lobe on image 121. There is a new tiny micronodule adjacent to the pleural surface in the left lower lobe on image 125. New micronodule in the left lower lobe on image 123. Previously noted 7 mm nodule in the superior segment of the left lower lobe has nearly completely resolved. Emphysematous changes. Stable prominent mediastinal lymph nodes which are nonspecific and may be reactive. Prior sternotomy and CABG. No pleural effusion. Limited imaging of the upper abdomen shows stable adrenal nodularity bilaterally. Bone windows show degenerative change of the thoracic spine. IMPRESSION [facility] A Service of [facility] RADIOLOGY TEXT RESULTS PATIENT: CAMILO POWELL RAY LOCATION: [facility] : 36 UNIT #: [id number] AGE: [address]: Rafi Vidales MD SEX: M ORDER DR: 1. The previously noted 7 mm nodule in the superior segment of the left lower lobe has resolved. 2. The small right-sided pleural effusion seen on the previous exam has also resolved. 3. There are 2 new micronodules in the left lower lobe and there is some scattered ground-glass opacification and a more focal ground-glass opacity in the right lower lobe. These findings may be infectious or inflammatory. Followup CT could be performed in 6 months to document clearing. Dictated by... Bipin Randolph M.D. THIS IS AN ELECTRONICALLY VERIFIED REPORT Bipin Randolph M.D. at 03/31/2017 2:47 PM GONZALES/kamaljit TD: 03/30/2017 12:01 JOB #: [id number] MEDICAL IMAGING REPORT Page 1 of 1 COPY
== END | disposition home or self-care (01) ==
LOC: CCAT 08:52
DX: J44.9 Chronic obstructive pulmonary disease, unspecified (principal); G47.33 Obstructive sleep apnea (adult) (pediatric); R91.8 Other nonspecific abnormal finding of lung field; J90 Pleural effusion, not elsewhere classified
CPT/HCPCS: 71250